=== PATIENT | male | born 1975 ===

== ENCOUNTER 2017-10-30 08:42 | Emergency (ER) | payer SELFPAY ==
[2017-10-30 08:54] VITALS: RESP 18
--- NOTE | 2017-10-30 09:38 | C.PDOC ---
History Of Present Illness Pt is a 42 yo with PMH signif only for HTN.Is on Amlodipine.Now with c/o generalized [place].No N/v,no fever,not worst [place] of life Chief Complaint (Nursing): Headache History/Exam Limitations: no limitations Onset/Duration Of Symptoms: Days Current Symptoms Are (Timing): Still Present Severity: Mild Pain Scale Rating Of: 2 Quality: Dull, Pressure Preceeding Symptoms: denies: Visual Disturbances, Known Migraine Symptoms Associated Symptoms: denies: Photophobia, Blurred Vision, Nausea, Vomiting Recent travel outside of the [place]: No Additional History Per: Patient Past Medical History Vital Signs: Last Vital Signs Temp 97.7 F 10/30/17 09:49 Pulse 60 10/30/17 09:49 Resp 18 10/30/17 09:49 BP 146/80 10/30/17 09:49 Pulse Ox 97 10/30/17 15:12 - Medical History PMH: No Chronic Diseases, HTN Surgical History: No Surg Hx Family History: States: No Known Family Hx - Social History Hx Alcohol Use: Yes Hx Substance Use: No - Immunization History Hx Tetanus Toxoid Vaccination: No Hx Influenza Vaccination: No Hx Pneumococcal Vaccination: No Review Of Systems Except As Marked, All Systems Reviewed And Found Negative. Constitutional: Negative for: Fever, Chills, Sweats, Weakness, Malaise Eyes: Negative for: Pain, Vision Change, Conjunctivae Inflammation ENT: Negative for: Ear Pain, Ear Discharge, Nose Pain, Nose Discharge Cardiovascular: Negative for: Chest Pain, Palpitations Physical Exam - Physical Exam Appears: Well Skin: Normal Color Head: Atraumatic, Normacephalic, Tenderness Eye(s): bilateral: Normal Inspection Ear(s): Bilateral: Normal Nose: Normal Oral Mucosa: Moist Tongue: Normal Appearing Teeth: Normal Dentition Throat: Normal Neck: Normal Lymphatic: Normal Exam Chest: Symmetrical Cardiovascular: Rhythm Regular Respiratory: Normal Breath Sounds Gastrointestinal/Abdominal: Normal Exam Back: Normal Inspection ED Course And Treatment O2 Sat by Pulse Oximetry: 97 Medical Decision Making Medical Decision Making: Pt likely with muscle tension [place].No Meningeal signs Disposition - Disposition Referrals: [facility] [Outside] Disposition: HOME/ ROUTINE Disposition Time: 09:40 Condition: GOOD Prescriptions: Acetaminophen/Butalbital/Caf [Fioricet] 1 tab PO TID PRN #15 tab PRN Reason: Pain, Mild (1-3) Forms: [facility] (Bangladeshi), Gen Discharge Inst [place] - Clinical Impression Clinical Impression: Headache
[2017-10-30 09:50] VITALS: BP 146/80; PULSE 60; TEMP 97.7
[2017-10-30 15:12] VITALS: O2SAT 97
== END 2017-10-30 09:50 | disposition home or self-care (01) ==
LOC: C.ER 08:42
DX: R51 Headache (principal); I10 Essential (primary) hypertension